=== PATIENT | male | born 1990 | race Caucasian/White ===

== ENCOUNTER 2016-07-14 13:53 | Emergency (ER) | payer SELFPAY ==
[~2016-07-14] VITALS: Ht 177.8 cm; Wt 65.0 kg
[2016-07-14 14:21] VITALS: BP 126/78
[2016-07-14 14:21] LABS: DAU SCREEN DISCLAIMER
[2016-07-14 14:35] LABS: HEMOGLOBIN 16.1 g/dL (13.7-18.0)
[2016-07-14 14:48] LABS: BLOOD UREA NITROGEN 24 mg/dL (7-18)
[2016-07-14 14:51] LABS: ASPARTATE AMINO TRANSFERASE 14 U/L (15-37)
[2016-07-14 14:52] LABS: ACETAMINOPHEN < 2 mcg/mL (10-30)
== END 2016-07-14 15:30 | disposition home or self-care (01) ==
LOC: ED 14:05
DX: F32.9 Major depressive disorder, single episode, unspecified (principal)
CPT/HCPCS: 36415; 80053; 80307; 80329; 85025; 99284; G0480

== ENCOUNTER 2018-02-15 19:29 | Emergency (ER) | payer OTHER ==
[~2018-02-15] VITALS: Ht 180.3 cm; Wt 65.2 kg
[2018-02-15 19:37] VITALS: BP 132/73
== END 2018-02-15 20:11 | disposition home or self-care (01) ==
LOC: ED 20:04
DX: K08.89 Other specified disorders of teeth and supporting structures (principal); F17.210 Nicotine dependence, cigarettes, uncomplicated
CPT/HCPCS: 99283

== ENCOUNTER 2019-08-16 05:37 | Emergency (ER) | payer SELFPAY ==
[~2019-08-16] VITALS: Ht 180.3 cm; Wt 67.5 kg
[2019-08-16 05:39] VITALS: BP 124/76
--- NOTE | 2019-08-16 05:58 | NUR ---
Patient/Caregiver given discharge instructions and they have confirmed that they understand the instructions. Patient ambulatory with steady gait.
== END 2019-08-16 05:59 | disposition home or self-care (01) ==
LOC: ED 05:52
DX: K02.9 Dental caries, unspecified (principal); K08.89 Other specified disorders of teeth and supporting structures; F17.200 Nicotine dependence, unspecified, uncomplicated
CPT/HCPCS: 99283